=== PATIENT | male | born 1960 ===

== ENCOUNTER 2024-03-13 09:13 | Outpatient (CLI) | payer OTHER | END 2024-03-13 09:14 | disposition home or self-care (01) | LOC: CSHSLEEP 09:13 | PROVIDERS: ATTEND Internal Medicine | DX: G47.33 Obstructive sleep apnea (adult) (pediatric) (principal); F41.9 Anxiety disorder, unspecified; R06.83 Snoring; G47.31 Primary central sleep apnea | CPT/HCPCS: 95800 ==